=== PATIENT | male | born 1960 | race Caucasian/White ===

== ENCOUNTER 2022-01-07 08:09 | Day surgery (SDC) | payer OTHER ==
[2022-01-01 10:31] VITALS: BMI 30.9
[2022-01-07] MEDS ORDERED: CEFAZOLIN 2 GM in DEXTROSE 5%-WATER - 100 ML IVPB ONE (10:00)
[2022-01-07] MEDS ORDERED: MIDAZOLAM HCL 2 MG/2 ML SINGLE DOSE VIAL ONE ×3 (10:15→11:11)
[2022-01-07] MEDS ORDERED: PROPOFOL 20 ML ONE ×3 (10:15→12:42)
[2022-01-07] MEDS ORDERED: BUPIVACAINE HCL/PF 0.5% (5MG/ML) 10 ML VIAL ONE (10:38)
[2022-01-07] MEDS ORDERED: BUPIVACAINE LIPOSOME/PF (EXPAREL) 266 MG/20 ML VIAL ONE (10:38)
[2022-01-07] MEDS ORDERED: ceFAZolin SODIUM 1 GM VIAL ONE ×2 (11:25→20:09)
[2022-01-07] MEDS ORDERED: ONDANSETRON 4 MG/2 ML VIAL ONE (11:27)
[2022-01-07] MEDS ORDERED: TRANEXAMIC ACID 1000 MG/10 ML VIAL ONE (11:27)
[2022-01-07] MEDS ORDERED: MAGNESIUM HYDROX 2400MG/30ML ORAL SUSPENSION 30 ML CUP PO PRN (13:34)
[2022-01-07] MEDS ORDERED: MAG HYDROX/AL HYDROX/SIMETH 30 ML UNIT-DOSE CUP PO PRN (13:34)
[2022-01-07] MEDS ORDERED: ONDANSETRON 4 MG/2 ML VIAL IVPUSH PRN ×2 (13:34→13:43)
[2022-01-07] MEDS ORDERED: oxyCODONE HCL 5 MG TABLET PO PRN (13:43)
[2022-01-07] MEDS ORDERED: LACTATED RINGERS SOLUTION 1,000 ML IV SCH (13:45)
[2022-01-07] MEDS ORDERED: SODIUM CHLORIDE 1,000 ML IV SCH (13:45)
[2022-01-07] MEDS: ACETAMINOPHEN 1000 MG/100 ML BAG IVPB ONE ×2 (14:25→17:41)
[2022-01-07] MEDS ORDERED: INSULIN (NOVOLOG) ASPART 100 UNITS/ML 10ML VIAL SQ SCH (16:30)
[2022-01-07] MEDS ORDERED: DEXTROSE 5%-WATER - 100 ML IVPB ONE (20:09)
[2022-01-07] MEDS: CEFAZOLIN 2 GM in DEXTROSE 5%-WATER - 100 ML IVPB SCH (20:48)
[2022-01-07] MEDS: oxyCODONE HCL 5 MG TABLET PO PRN (20:48)
[2022-01-07] MEDS: ACETAMINOPHEN 500 MG TABLET (FP) PO SCH (21:20)
[2022-01-07] MEDS: SENNOSIDES/DOCUSATE COMBO (SENNA PLUS) TABLET (UD) PO SCH (21:21)
[2022-01-07] MEDS: ASPIRIN 81 MG CHEWABLE TABLETS PO SCH (21:22)
[2022-01-07] MEDS ORDERED: CELECOXIB 200 MG CAPSULE PO SCH (22:00)
[2022-01-07] MEDS ORDERED: ATORVASTATIN CA 10 MG TABLET (FP) PO SCH (22:00)
[2022-01-07] MEDS ORDERED: PANTOPRAZOLE 40 MG TABLET PO SCH (22:00)
[2022-01-07] MEDS ORDERED: oxyCODONE HCL 10 MG SUSTAINED ACTING TABLET PO SCH (22:00)
[2022-01-07] MEDS ORDERED: PATIENT'S OWN MEDICATION (NON-FORMULARY) (Metformin Hcl [Metformin Er Osmotic] 1,000 MG Ta PO SCH (22:00)
[2022-01-07] MEDS ORDERED: LOSARTAN 50MG/HCTZ 12.5MG 1 TAB PO SCH (22:00)
[2022-01-07] MEDS: INSULIN SLIDING SCALE (NOVOLOG) 1 VIAL SQ SCH (22:21)
[2022-01-08] MEDS ORDERED: DEXTROSE 5%-WATER - 100 ML IVPB ONE (03:41)
[2022-01-08] MEDS ORDERED: ceFAZolin SODIUM 1 GM VIAL ONE (03:41)
[2022-01-08] MEDS: CEFAZOLIN 2 GM in DEXTROSE 5%-WATER - 100 ML IVPB SCH (04:13)
[2022-01-08] MEDS: oxyCODONE HCL 5 MG TABLET PO PRN (04:28)
[2022-01-08] MEDS: ACETAMINOPHEN 500 MG TABLET (FP) PO SCH ×2 (06:35→14:43)
[2022-01-08] MEDS: INSULIN SLIDING SCALE (NOVOLOG) 1 VIAL SQ SCH ×2 (06:43→12:11)
[2022-01-08 08:25] LABS: CALCIUM 8.9 mg/dl (8.5-10); CREATININE 1.3 mg/dl (0.55-1.3)
[2022-01-08 08:27] LABS: HEMATOCRIT 38.5 % (35.4-49); HEMOGLOBIN 13.7 G/dL (11.7-16.9); MCH 32.6 pg (25.7-33.7); MCHC 35.5 g/dl (32.0-35.9); MEAN CELL VOLUME 91.8 fl (80-96); MEAN PLT VOLUME 6.8 fl (7.5-11.1); PLATELET COUNT 221.3 10^3/uL (134-434); RBC 4.19 10^6/uL (4.00-5.60); RDW 13.1 % (11.9-15.9); WHITE BLOOD COUNT 10.3 10^3/uL (4.0-10.8)
[2022-01-08] MEDS ORDERED: traMADol HCL 50 MG TABLET PO PRN (08:45)
[2022-01-08] MEDS ORDERED: oxyCODONE HCL 5 MG TABLET PO PRN ×2 (08:58→13:55)
[2022-01-08] MEDS: ASPIRIN 81 MG CHEWABLE TABLETS PO SCH (09:05)
[2022-01-08] MEDS: SENNOSIDES/DOCUSATE COMBO (SENNA PLUS) TABLET (UD) PO SCH (09:06)
[2022-01-08 09:28] VITALS: TEMP 98.6
[2022-01-08] MEDS ORDERED: PANTOPRAZOLE 40 MG TABLET PO SCH (10:00)
[2022-01-08] MEDS ORDERED: LORATADINE 10 MG TABLET PO SCH (10:00)
[2022-01-08] MEDS ORDERED: MULTIVITAMINS (DAILY MVI) TABLET (FP) PO SCH (10:00)
[2022-01-08 14:14] VITALS: BP 126/69; PULSE 101
== END 2022-01-08 15:48 | disposition home or self-care (01) ==
LOC: FASUSAT 08:09 → FM/S 15:36 → FASUSAT 01-08 13:35
PROVIDERS: ATTEND Orthopaedic Surgery
PROC: 0SRD0J9 Replacement of Left Knee Joint with Synthetic Substitute, Cemented, Open Approach (ICD-10-PCS; principal; 2022-01-07 11:37)
DX: M17.12 Unilateral primary osteoarthritis, left knee (principal)
CPT/HCPCS: 27447; C1776; 36415; 73560-TC-LT-FY; 80048; 82962; 85027; 88305-TC; 88311-TC; 94760; 97010-GP; 97116-GP; 97161-GP